=== PATIENT | female | born 1970 | race Hispanic/Latino ===

== ENCOUNTER 2017-11-17 14:17 | Emergency (ER) | payer OTHER ==
[2017-11-17] MEDS ORDERED: CLINDAMYCIN 600 MG/D5% WATER 50 ML IV ONE (15:03)
[2017-11-17 15:05] LABS: BASOPHILS % (AUTO) 0.4 % (0.0-5.0); HEMATOCRIT 37.1 % (36-48); LYMPHOCYTES % (AUTO) 22.3 % (21.0-51.0); MEAN CORPUSCULAR HEMOGLOBIN 30.3 pg (27.0-33.0); MEAN CORPUSCULAR HGB CONC 35.7 g/dL (32.0-36.0); MEAN CORPUSCULAR VOLUME 84.9 fL (79-99); MONOCYTES % (AUTO) 11.1 % (3.0-13.0); NEUTROPHILS % (AUTO) 65.2 % (40.0-77.0); PLATELET COUNT (AUTO) 186 K/uL (130-400); RED BLOOD CELL COUNT(AUTO) 4.37 MIL/uL (4.00-5.50); RED CELL DISTRIBUTION WIDTH 13.1 % (11.0-15.5); WHITE BLOOD COUNT (AUTO) 6.1 K/uL (4.8-10.8)
[2017-11-17 15:18] LABS: CREATININE 0.7 mg/dL (0.5-1.5); POTASSIUM 4.1 mmol/L (3.5-5.1)
[2017-11-17 15:22] LABS: ALBUMIN 3.5 g/dL (3.5-5.0); BILIRUBIN,TOTAL 0.2 mg/dL (0.2-1.0); TOTAL PROTEIN, SERUM 7.5 g/dL (6.0-8.3)
== END 2017-11-17 16:14 | disposition home or self-care (01) ==
LOC: EDH 14:17
DX: L02.412 Cutaneous abscess of left axilla (principal); I10 Essential (primary) hypertension; Z90.49 Acquired absence of other specified parts of digestive tract
CPT/HCPCS: 36415; 80053; 84703; 85025; 87070; 87076; 96365; 99284; J3490

== ENCOUNTER 2021-04-29 10:00 | Inpatient (IN) | payer OTHER ==
[~2021-04-29] VITALS: Ht 154.9 cm; Wt 72.6 kg
[2021-04-29 12:56] LABS: BASOPHILS % (AUTO) 0.4 % (0.0-5.0); HEMATOCRIT 39.1 % (36-48); LYMPHOCYTES % (AUTO) 19.1 % (21.0-51.0); MEAN CORPUSCULAR HEMOGLOBIN 30.9 pg (27.0-33.0); MEAN CORPUSCULAR VOLUME 90.9 fL (79-99); MONOCYTES % (AUTO) 7.6 % (3.0-13.0); NEUTROPHILS % (AUTO) 71.6 % (40.0-77.0); PLATELET COUNT (AUTO) 167 K/uL (130-400); RED CELL DISTRIBUTION WIDTH 12.2 % (11.0-15.5)
[2021-04-29] MEDS: CEFAZOLIN SODIUM 1 GM VIAL IVP SCH (13:30)
[2021-04-29 13:43] VITALS: BP 140/73
[2021-04-29] MEDS ORDERED: MV-M1TAB20 PO (15:52)
[2021-04-29] MEDS ORDERED: MULT-1367 PO (15:52)
[2021-04-29] MEDS ORDERED: LISI30TA4 PO (15:52)
[2021-04-30] VITALS (23 sets, daily range): BP systolic 106–128; BP diastolic 54–81
[2021-04-30] MEDS ORDERED: LACTATED RINGERS 1000ML 1,000 ML IV ONE (06:12)
[2021-04-30] MEDS ORDERED: LIDOCAINE PF 100MG/5ML (2%) SYRINGE 5ML ONE ×2 (10:32→10:37)
[2021-04-30] MEDS ORDERED: SUCCINYLCHOLINE CHLORIDE 20 MG/ML 10 ML VIAL ONE (10:32)
[2021-04-30] MEDS ORDERED: PROPOFOL 10 MG/ML 20ML VIAL IV ONE (10:32)
[2021-04-30] MEDS ORDERED: MIDAZOLAM HCL 1 MG/ML 2ML VIAL ONE (10:32)
[2021-04-30] MEDS ORDERED: FENTANYL CITRATE PF 50 MCG/1 ML 2ML VIAL ONE ×2 (10:32→12:03)
[2021-04-30] MEDS ORDERED: ROCURONIUM 10MG/1ML SYR 10 MG/ML ML ONE (10:32)
[2021-04-30] MEDS ORDERED: DEXAMETHASONE SOD PHOSPHATE 10MG/ML 1ML VIAL ONE (10:37)
[2021-04-30] MEDS: CEFAZOLIN SODIUM 1 GM VIAL IVP SCH (10:49)
[2021-04-30] MEDS ORDERED: ATROPINE 1MG SYG IVP ONE (11:10)
[2021-04-30] MEDS ORDERED: EPHEDRINE SULFATE 50 MG/ML AMPULE ONE (11:11)
[2021-04-30] MEDS ORDERED: GLYCOPYRROLATE 1 MG/5 ML SYRINGE ONE (11:11)
[2021-04-30] MEDS ORDERED: PHENYLEPHRINE HCL 10 MG/ML 1ML VIAL IV ONE (11:13)
[2021-04-30] MEDS ORDERED: ONDANSETRON 4MG INJ ONE (12:04)
[2021-04-30] MEDS ORDERED: NEOSTIGMINE 5MG/5ML SYR IV ONE (12:08)
[2021-04-30] MEDS ORDERED: MEPERIDINE-PF 25 MG/ML SYG ONE ×2 (12:38→12:47)
[2021-04-30] MEDS ORDERED: ACETAMINOPHEN WITH CODEINE 1 TAB TAB PO PRN (14:00)
[2021-04-30] MEDS ORDERED: ONDANSETRON 4MG INJ IVP PRN (14:00)
[2021-04-30] MEDS ORDERED: BISACODYL 10 MG SUPP.RECT RC PRN (14:00)
[2021-04-30] MEDS ORDERED: PROMETHAZINE HCL 25 MG/ML 1ML AMPULE IM PRN ×2 (14:00)
[2021-04-30] MEDS ORDERED: IBUPROFEN 600 MG TABLET PO PRN (14:00)
[2021-04-30] MEDS ORDERED: MEPERIDINE-PF 75 MG/ML SYG IM PRN (14:00)
[2021-04-30] MEDS: DEXTROSE 5 %-0.45 % NACL 1,000 ML IV PRN ×2 (15:45→22:30)
[2021-04-30] MEDS: DOCUSATE SODIUM 100 MG CAP PO PRN (21:02)
[2021-04-30] MEDS: SIMETHICONE 80 MG TAB.CHEW PO PRN (21:02)
[2021-05-01 03:10] VITALS: BP 121/75
[2021-05-01] MEDS ORDERED: HYDROCODONE/ACETAMINOPHEN 5/325 MG TAB PO PRN (05:00)
[2021-05-01 05:50] LABS: HEMATOCRIT 37.4 % (36-48); MEAN CORPUSCULAR HEMOGLOBIN 30.8 pg (27.0-33.0); MEAN CORPUSCULAR HGB CONC 34.5 g/dL (32.0-36.0); MEAN CORPUSCULAR VOLUME 89.3 fL (79-99); RED BLOOD CELL COUNT(AUTO) 4.19 MIL/uL (4.00-5.50); WHITE BLOOD COUNT (AUTO) 12.7 K/uL (4.8-10.8)
[2021-05-01] MEDS: DEXTROSE 5 %-0.45 % NACL 1,000 ML IV PRN (06:38)
[2021-05-01 07:21] VITALS: BP 107/61
[2021-05-01] MEDS: DOCUSATE SODIUM 100 MG CAP PO PRN ×2 (08:33→19:53)
[2021-05-01] MEDS: SIMETHICONE 80 MG TAB.CHEW PO PRN ×2 (08:33→19:53)
[2021-05-01] MEDS: IBUPROFEN 800 MG TAB PO PRN (08:34)
[2021-05-01 11:24] VITALS: BP 111/72
[2021-05-01 16:31] VITALS: BP 121/76
[2021-05-01 19:30] VITALS: BP 108/66
[2021-05-01 23:10] VITALS: BP 105/72
[2021-05-02] MEDS: IBUPROFEN 800 MG TAB PO PRN ×2 (00:26→08:57)
[2021-05-02 03:18] VITALS: BP 110/71
[2021-05-02 07:07] VITALS: BP 111/68
[2021-05-02] MEDS: DOCUSATE SODIUM 100 MG CAP PO PRN (08:56)
[2021-05-02] MEDS: SIMETHICONE 80 MG TAB.CHEW PO PRN (08:57)
[2021-05-02 11:20] VITALS: BP 109/69
== END 2021-05-02 13:32 | disposition home or self-care (01) | DRG 743 ==
LOC: EDSTATUS 10:00 → DAHIP 04-30 05:57 → WSH 04-30 13:38
PROVIDERS: ADMIT Obstetrics & Gynecology; ATTEND Obstetrics & Gynecology
PROC: 0UB70ZZ Excision of Bilateral Fallopian Tubes, Open Approach (ICD-10-PCS; 2021-04-30)
PROC: 0UB20ZZ Excision of Bilateral Ovaries, Open Approach (ICD-10-PCS; 2021-04-30)
PROC: 0UT90ZZ Resection of Uterus, Open Approach (ICD-10-PCS; principal; 2021-04-30 10:38)
DX: D25.9 Leiomyoma of uterus, unspecified (principal); N92.1 Excessive and frequent menstruation with irregular cycle; Z20.822 Contact with and (suspected) exposure to COVID-19; I10 Essential (primary) hypertension; F17.210 Nicotine dependence, cigarettes, uncomplicated; R19.00 Intra-abdominal and pelvic swelling, mass and lump, unspecified site; E78.5 Hyperlipidemia, unspecified; E66.9 Obesity, unspecified; Z68.30 Body mass index [BMI] 30.0-30.9, adult; Z90.49 Acquired absence of other specified parts of digestive tract; Z83.3 Family history of diabetes mellitus; Z82.49 Family history of ischemic heart disease and other diseases of the circulatory system; Z82.62 Family history of osteoporosis; Z80.8 Family history of malignant neoplasm of other organs or systems
CPT/HCPCS: 36415; 84702; 85025; 85027; 86850; 86900; 86901; 87635; A4344; G0378; J0330; J0461; J0690; J1100; J2001; J2175; J2250; J2370; J2405; J2550; J2704; J2710; J3010; J3490; J7120